=== PATIENT | female | born 1985 | race Caucasian/White ===

== ENCOUNTER 2017-02-01 10:50 | Inpatient (IN) | payer MEDICAID ==
[~2017-02-01] VITALS: Ht 167.6 cm; Wt 72.2 kg
[~2017-02-01 10:50] MED LIST: INSULIN R; LANTUS
--- NOTE | 2017-02-01 11:05 | ERD ---
ER Documentation Chief Complaint Date/Time DATE: 02/01/17 TIME: 11:01 Chief Complaint Abdominal pain nausea vomiting diarrhea and high blood sugar. HPI This 31-year-old female comes emergency room from her primary care office by ambulance for hyperglycemia with sugar of 432. States that she has a cyst on her hip currently. She also complains of a generalized crampy abdominal pain and nausea. She has been urinating more frequently than usual as well. At home she is on 2 types of insulin for her diabetes diagnosed 13 years ago. She states that her doctor gave her 2 shots. 1 of them was for diabetes and she is not sure what the other one was for. She has no fevers. ROS All systems reviewed and are negative except as per history of present illness. Medications Home Meds Reported Medications Sertraline Hcl* (Zoloft*) 100 Mg Tablet, 100 MG PO DAILY, #30 TAB 02/01/17 Insulin Glargine* (Lantus*) 100 Unit/Ml Soln, 30 UNIT SC QHS, #1 VIAL 02/01/17 Insulin Regular, Human (Humulin R) 100 Unit/1 Ml Vial, 15 UNIT IJ AC MEALS, VIAL 02/01/17 Discontinued Reported Medications [Lantus] No Conflict Check 09/06/10 [Insulin R] No Conflict Check 09/06/10 Allergies Allergies: Coded Allergies: No Known Allergy (Verified , 09/07/10) PMhx/Soc History of Surgery: Yes (BREAST IMPLANT) Anesthesia Reaction: No Hx Neurological Disorder: No Hx Respiratory Disorders: No Hx Cardiac Disorders: No Hx Psychiatric Problems: No Hx Miscellaneous Medical Probl: No Hx Alcohol Use: No Hx Substance Use: No Hx Tobacco Use: No Physical Exam Vitals Vital Signs Date Time Temp Pulse Resp B/P Pulse Ox O2 Delivery O2 Flow Rate FiO2 02/01/17 14:00 106 18 103/48 99 Room Air 02/01/17 13:40 110 18 100/41 99 Room Air 02/01/17 12:55 93 18 109/53 99 Room Air 02/01/17 11:42 98.6 89 18 134/66 98 Physical Exam Const: [] Mild distress, appears uncomfortable Head: Atraumatic Eyes: Normal Conjunctiva ENT: Normal External Ears, Nose and Mouth. Neck: Full range of motion..~ No meningismus. Resp: Clear to auscultation bilaterally Cardio: Regular rate and rhythm, no murmurs Abd: Soft, mild diffuse tenderness without guarding or rebound, non distended. Normal bowel sounds Skin: No petechiae or rashes Back: No midline or flank tenderness Ext: No cyanosis, or edema, right hip with very small area of erythema approximately 2 x 2 centimeters it is not raised or fluctuant. Neur: Awake and alert and oriented 3, no focal deficits Psych: Normal Mood and Affect Result Diagram: 02/01/17 1131 02/01/17 1131 Results 24 hrs Laboratory Tests Test 02/01/17 11:31 02/01/17 13:13 02/01/17 13:15 02/01/17 14:40 White Blood Count 17.410^3/ul Red Blood Count 4.6210^6/ul Hemoglobin 13.9g/dl Hematocrit 42.2% Mean Corpuscular Volume 91.3fl Mean Corpuscular Hemoglobin 30.1pg Mean Corpuscular Hemoglobin Concent 32.9g/dl Red Cell Distribution Width 13.2% Platelet Count 17971^3/UL Mean Platelet Volume 10.5fl Neutrophils % 83.9% Lymphocytes % 11.6% Monocytes % 3.5% Eosinophils % 0.3% Basophils % 0.3% Nucleated Red Blood Cells % 0.0/100WBC Neutrophils # 14.610^3/ul Lymphocytes # 2.010^3/ul Monocytes # 0.610^3/ul Eosinophils # 0.110^3/ul Basophils # 0.110^3/ul Nucleated Red Blood Cells # 0.010^3/ul Urine Color LT. YELLOW Urine Clarity CLEAR Urine pH 5.5 Urine Specific [place] 1.020 Urine Ketones 3+ Urine Nitrite NEGATIVE Urine Bilirubin NEGATIVE Urine Urobilinogen 0.2 E.U./dL Urine Leukocyte Esterase NEGATIVE Urine Microscopic RBC 2-5/HPF Urine Microscopic WBC 2-5/HPF Urine Epithelial Cells FEW Urine Hemoglobin TRACE Urine Glucose 0.5%% Urine Total Protein NEGATIVE Sodium Level 138mmol/L Potassium Level 5.1mmol/L Chloride Level 99mmol/L Carbon Dioxide Level 12mmol/L Anion Gap 32 Blood Urea Nitrogen 14mg/dl Creatinine 0.71mg/dl Glucose Level 583mg/dl Calcium Level 9.4mg/dl Total Bilirubin 1.7mg/dl Direct Bilirubin 0.00mg/dl Indirect Bilirubin 1.7mg/dl Aspartate Amino Transf (AST/SGOT) 16IU/L Alanine Aminotransferase (ALT/SGPT) 24IU/L Alkaline Phosphatase 117IU/L Total Protein 8.0g/dl Albumin 4.4g/dl Globulin 3.60g/dl Albumin/Globulin Ratio 1.22 Lipase 49U/L Bedside Glucose 447mg/dL 308mg/dL Lactic Acid Level 1.7mmol/L Current Medications Medications (Trade) Dose Ordered Sig/Keila Route PRN Reason Start Time Stop Time Status Last Admin Dose Admin Sodium Chloride (NS) 1,000 ml @ 1,000 mls/hr Q1H STAT IV 02/01/17 11:07 02/01/17 12:06 DC 02/01/17 11:28 Morphine Sulfate (morphine) 2 mg ONCE STAT IV 02/01/17 11:07 02/01/17 11:09 DC 02/01/17 11:29 Ondansetron HCl 4 mg 4 mg ONCE STAT IV 02/01/17 11:07 02/01/17 11:09 DC 02/01/17 11:28 Sodium Chloride 1,000 ml @ 1,000 mls/hr Q1H ONCE IV 02/01/17 13:00 02/01/17 14:04 DC 02/01/17 12:47 Sodium Chloride 1,000 ml @ 1,000 mls/hr Q1H ONCE IV 02/01/17 13:00 02/01/17 14:04 DC 02/01/17 12:56 Insulin Human Regular/Sodium Chloride (Novolin-R/NS) 100 ml @ 0 mls/hr TITRATE STAT IV 02/01/17 12:34 02/01/17 12:36 DC 02/01/17 13:19 Morphine Sulfate (morphine) 4 mg ONCE STAT IV 02/01/17 13:16 02/01/17 13:17 DC 02/01/17 13:27 Procedures/MDM Diabetic ketoacidosis. Patient also has leukocytosis which may be reactive as there is currently no obvious source of infection. Will not be administering antibiotics at this time. She has no vital signs suspicious for sepsis. Patient's nausea was resolved with Zofran and her pain was controlled with 2 mg of morphine and then 4 mg of morphine. She was given 3 L of IV fluid in the emergency room. Insulin drip was started. Currently patient's vital signs have stabilized and she is going to be admitted to the ICU. I spoke with Dr. Samayoa who will be admitting the patient. Chest x-ray interpretation: I see no acute process. There is no pulmonary edema , no infiltrate, no widened mediastinum, no pneumothorax, no fractures secured entrance monitor interpretation: Normal sinus rhythm without arrhythmia. Ultrasound interpretation of the right upper quadrant: Hepatomegaly, see no gallstones or dilated common bile duct. No persists colic fluid Critical care time 33 minutes: This includes treatment of diabetic ketoacidosis , very careful fluid administration, multiple visits patient bedside to reassess status, use of an insulin drip and multiple checks of electrolytes to monitor gap and sugar, chart reviewed, discussion with patient and the doctor is admitting to the intensive care unit. This does not include any billable procedures Departure Diagnosis: Primary Impression: DKA (diabetic ketoacidoses) Additional Impressions: Abdominal pain Vomiting Leukocytosis Hepatomegaly CHESTER GONZALEZ DO February 01, 2017 11:05
[2017-02-01] MEDS ORDERED: SOD CHLORIDE 0.9% 1,000 ML IV STA (11:07)
[2017-02-01] MEDS ORDERED: morphine 2 MG INJ IV STA (11:07)
[2017-02-01] MEDS ORDERED: ONDANSETRON 4 MG INJ IV STA (11:07)
[2017-02-01 11:42] VITALS: Ht 167.6 cm; Wt 72.2 kg
[2017-02-01 11:56] LABS: ADD SCAN DIFF NO
[2017-02-01 11:59] LABS: BASOPHIL # 0.1 10^3/ul (0.0-0.1); BASOPHILS % 0.3 % (0.0-2.0); EOSINOPHILS # 0.1 10^3/ul (0.0-0.5); EOSINOPHILS % 0.3 % (0.0-7.0); HEMATOCRIT 42.2 % (37.0-47.0); HEMOGLOBIN 13.9 g/dl (12.0-16.0); LYMPHOCYTES % 11.6 % (15.0-51.0); MEAN CORPUSCULAR HEMOGLOBIN 30.1 pg (29.0-33.0); MEAN CORPUSCULAR HGB CONC 32.9 g/dl (32.0-37.0); MEAN CORPUSCULAR VOLUME 91.3 fl (82.0-101.0); MEAN PLATELET VOLUME 10.5 fl (7.4-10.4); MONOCYTE # 0.6 10^3/ul (0.3-0.9); MONOCYTES % 3.5 % (0.0-11.0); NEUTROPHIL # 14.6 10^3/ul (1.6-7.5); NEUTROPHILS % 83.9 % (39.0-77.0); PLATELET COUNT 342 10^3/UL (140-415); RED BLOOD COUNT 4.62 10^6/ul (4.20-5.40); RED CELL DISTRIBUTION WIDTH 13.2 % (11.5-14.5); WHITE BLOOD COUNT 17.4 10^3/ul (4.8-10.8)
[2017-02-01 12:05] LABS: ADD UMIC YES; URINE BILIRUBIN (Dip) NEGATIVE (NEGATIVE); URINE BLOOD (Dip) TRACE (NEGATIVE); URINE COLOR LT. YELLOW (YELLOW); URINE KETONES (Dip) 3+ (NEGATIVE); URINE LEUKOCYTE ESTERASE (Dip) NEGATIVE (NEGATIVE); URINE NITRITE (Dip) NEGATIVE (NEGATIVE); URINE TOTAL PROTEIN (Dip) NEGATIVE (NEGATIVE); URINE UROBILINOGEN (Dip) 0.2 E.U./dL (0.1-1.0)
[2017-02-01 12:27] LABS: ALBUMIN 4.4 g/dl (3.3-4.9); ALBUMIN/GLOBULIN RATIO 1.22; BILIRUBIN,INDIRECT 1.7 mg/dl (0-1.1); BILIRUBIN,TOTAL 1.7 mg/dl (0.2-1.3); CALCIUM 9.4 mg/dl (8.4-10.2); CREATININE 0.71 mg/dl (0.44-1.00); POTASSIUM 5.1 mmol/L (3.5-5.1)
[2017-02-01] MEDS ORDERED: INSULIN HUMAN REGULAR 100 UNIT in SOD CHLORIDE 0.9% 99 ML IV STA (12:34)
[2017-02-01] MEDS ORDERED: SOD CHLORIDE 0.9% 1,000 ML IV ONE ×2 (13:00)
[2017-02-01] MEDS ORDERED: morphine 4 MG/ML VIAL IV STA (13:16)
--- NOTE | 2017-02-01 13:33 | RADRPT ---
PROCEDURE: XR Chest. CLINICAL INDICATION: Hyperglycemia TECHNIQUE: Chest AP portable. COMPARISON: No comparison available. FINDINGS: The mediastinal structures are unremarkable. The heart is normal in size and configuration. The pu lmonary vascularity is normal. The lung figueroa are unremarkable. No consolidation is identified. The pleural spaces are unremarkable. The axial skeleton is unremarkable. IMPRESSION: No active intrathoracic disease. RPTAT: HGDB .Jaya Camejo MD, MD Date Time Electronically viewed and signed by .Jaya Camejo MD, on 02/01/2017 13:33 .B/
[2017-02-01] MEDS ORDERED: LANT3I SC (14:00)
[2017-02-01] MEDS ORDERED: INSU100V3 IJ (14:00)
[2017-02-01] MEDS ORDERED: SERT100T PO (14:01)
--- NOTE | 2017-02-01 14:39 | RADRPT ---
PROCEDURE: US Abdomen. CLINICAL INDICATION: Elevated bilirubin with nausea and vomiting. TECHNIQUE: Multiple real-time images were acquired of the patient's abdomen and retroperitoneum ut ilizing a high resolution transducer. COMPARISON: None FINDINGS: The pancreas is normal as visualized. Portions of the tail of the pancreas are not visualized. The liver is identified in the right upper quadrant. There is a scarring stripe pattern in the liver . The liver is enlarged measuring 16.9 cm in sagittal AP dimension. The hepatic and portal veins ar e patent. The gallbladder wall measures 2.4 mm which is normal. There is no evidence of cholelithi asis. The common bile duct measures 5.6 mm. The right kidney measures 11.3 cm in length and is unremarkable. IMPRESSION: 1. Hepatomegaly. 2. This is a nonspecific finding that can be seen acute hepatitis , hepatitis, right heart failure or in the fasting liver. Burkittt's lymphoma, and leukemic infiltration of the liver occasionally r esult in this finding. Further workup would depend upon clinical suspicion. RPTAT:AAJJ Physician Laila Date Time Electronically viewed and signed by Physician Laila on 02/01/2017 14:38 JOSE/
[2017-02-01 16:05] LABS: POTASSIUM 5.5 mmol/L (3.5-5.1)
[2017-02-01 16:06] LABS: CALCIUM 8.5 mg/dl (8.4-10.2); CREATININE 0.65 mg/dl (0.44-1.00)
[2017-02-01 16:22] LABS: POTASSIUM 4.6 mmol/L (3.5-5.1)
[2017-02-01 16:24] LABS: CREATININE 0.61 mg/dl (0.44-1.00)
[2017-02-01 16:25] LABS: CALCIUM 8.1 mg/dl (8.4-10.2)
[2017-02-01] MEDS ORDERED: ACETAMINOPHEN 325 MG TAB PO PRN (16:30)
[2017-02-01] MEDS ORDERED: DOCUSATE SODIUM 100 MG CAP PO PRN (16:30)
[2017-02-01] MEDS ORDERED: NA PHOSPHATE/BIPHOS 133 ML ENEMA PR PRN (16:30)
[2017-02-01] MEDS ORDERED: NACL 0.9% 3 ML SYG IV SCH (16:30)
[2017-02-01] MEDS ORDERED: morphine 2 MG INJ IV PRN (16:30)
[2017-02-01] MEDS ORDERED: LORAZEPAM 2 MG INJ IV PRN (16:30)
[2017-02-01] MEDS ORDERED: ONDANSETRON 4 MG INJ IV PRN (16:30)
[2017-02-01] MEDS ORDERED: ALBUTEROL/IPRATROPIUM (NEB) 3 ML AMP HHN PRN (16:30)
[2017-02-01] MEDS ORDERED: hydrALAzine 20 MG INJ IV PRN (16:30)
[2017-02-01] MEDS ORDERED: MAGNESIUM HYDROXIDE 30ML CUP PO PRN (16:30)
[2017-02-01] MEDS ORDERED: HYDROCODONE/APAP (5/325) TAB PO PRN (16:30)
[2017-02-01] MEDS ORDERED: NITROGLYCERIN (SL) 0.4 MG TAB SL PRN (16:30)
[2017-02-01] MEDS ORDERED: GLUCAGON 1 MG INJ IM PRN (17:00)
[2017-02-01] MEDS ORDERED: GLUCOSE GEL 15 GRAM TUBE PO PRN ×2 (17:00)
[2017-02-01] MEDS ORDERED: DEXTROSE 50% 50 ML SYRINGE IV PRN ×2 (17:00)
[2017-02-01] MEDS ORDERED: GLUCOSE GEL 15 GRAM TUBE BUCCAL PRN (17:00)
[2017-02-01] MEDS: INSULIN ASPART [NOVOLOG] 3 ML PEN SC SCH ×2 (17:30→21:55)
[2017-02-01] MEDS: SOD CHLORIDE 0.9% 1,000 ML IV SCH (17:49)
[2017-02-01 18:00] VITALS: TEMP 98.2
[2017-02-01 18:46] LABS: POTASSIUM 4.9 mmol/L (3.5-5.1)
[2017-02-01 18:49] LABS: CREATININE 0.58 mg/dl (0.44-1.00)
[2017-02-01 18:50] LABS: CALCIUM 8.2 mg/dl (8.4-10.2)
--- NOTE | 2017-02-01 20:03 | HP ---
DATE OF ADMISSION: 02/01/2017 CHIEF COMPLAINT: Abdominal pain, nausea, vomiting. HISTORY OF PRESENT ILLNESS: A 31-year-old female with past medical history of diabetes, unclear typ e, who was sent in from the emergency room from her primary care office because of elevated blood molina gar. Apparently her sugar was taken, it was around 432. She has been having abdominal pain, nausea , vomiting symptoms for the last couple of days as well. She also had increased urinary frequency, but denies dysuria, hematuria. Apparently at home she takes insulin for her diabetes, which was lisandro gnosed about 13 years ago. She has 2 different kinds of insulin she says she takes at home. When s he came into the ER today, however, she was found with blood sugar elevated of 583, and her anion ga p was elevated as well. Her CO2 was low. Signs of diabetic ketoacidosis. The patient was given IV fluids and IV insulin in the ER. PAST MEDICAL HISTORY: As stated above. ALLERGIES: NO KNOWN DRUG ALLERGIES. HOME MEDICATIONS: 1. Zoloft 100 mg daily. 2. Lantus 30 units at bedtime. 3. Humulin R 15 units with meals. PAST SURGICAL HISTORY: She had breast implants in the past. SOCIAL HISTORY: Negative for smoking, drinking, or IV drug abuse. FAMILY HISTORY: Noncontributory. PHYSICAL EXAMINATION: VITAL SIGNS: T-max 98.6, pulse 89 to 110, respirations 18, blood pressure 100/41, saturating at 99% on room air. GENERAL: The patient is lying in bed, slightly lethargic but in mild distress. HEENT: Pupils equal, round, react to light. Extraocular muscles intact. NECK: Supple, no thyromegaly. LUNGS: Clear to auscultation bilaterally. CARDIOVASCULAR: S1, S2 heard. No rubs or gallops. ABDOMEN: Mild tenderness to palpation in epigastric area. No rebound or guarding. MUSCULOSKELETAL: No lower extremity edema bilaterally. NEUROLOGIC: No focal deficits. LABORATORIES: WBC 17.4, hemoglobin 13.9, hematocrit 42.2, platelets 342. Sodium 138, potassium 5.1 , chloride 99, CO2 of 12, BUN 14, creatinine 0.71, glucose 583. Her UA shows 3+ ketones, negative n itrites, negative leukocyte esterase. There was a gallbladder ultrasound performed today that shows hepatomegaly, nonspecific finding that can be seen in acute hepatitis, hepatitis, right heart failu re or fasting liver. The chest x-ray showed no active intrathoracic disease. ASSESSMENT AND PLAN: A 31-year-old female coming in with abdominal pain, nausea, vomiting, increase d urinary frequency for the last 2 days with signs of diabetic ketoacidosis. 1. Abdominal pain, nausea, vomiting, most likely all secondary to patient's diabetic ketoacidosis. She also had increased urinary frequency. The patient has been in the ER for a few hours. Her gap is actually closed now. Sugars are down into the high 100 range, so because she has gotten IV insu daniel in the ER, will go ahead and admit the patient to either telemetry or Med/Surg floor. We will c ontinue aggressive IV fluid hydration. Check TSH, A1c, lipid panel. Consider starting her on carbo hydrate controlled diet now and switching her to SubQ insulin at this point, as she appears to be co jsei out of diabetic ketoacidosis. Replete electrolytes aggressively including any low potassium, ph osphorus or magnesium as well. 2. Possible history of anxiety, Ativan p.r.n. 3. Gastrointestinal prophylaxis. Proton pump inhibitor. 4. Deep venous thrombosis prophylaxis, heparin subQ. Dictated By: GEORGE BATES Conf#: [id number] DID#: [id number]
[2017-02-01 20:05] VITALS: PULSE 72
[2017-02-01 20:10] LABS: HAAIG REFLEX REFLEX FILED
[2017-02-01 20:41] LABS: ETHANOL < 10.0 mg/dl
[2017-02-01 20:44] LABS: ALBUMIN 3.5 g/dl (3.3-4.9)
[2017-02-01 20:47] LABS: TOTAL PROTEIN 6.7 g/dl (6.1-8.1)
[2017-02-01] MEDS ORDERED: INSULIN GLARGINE [LANtus] 3 ML PEN SC SCH (21:00)
[2017-02-01 21:02] LABS: CALCIUM 8.3 mg/dl (8.4-10.2); CREATININE 0.57 mg/dl (0.44-1.00)
[2017-02-01 21:53] LABS: HEPATITIS B CORE ANTIBODY NEGATIVE (NEGATIVE)
[2017-02-01] MEDS: HEPARIN 5,000 UNIT/0.5 ML VIAL SC SCH (21:54)
[2017-02-01 21:56] VITALS: BP 108/54; RESP 20
[2017-02-01 22:36] LABS: CALCIUM 8.6 mg/dl (8.4-10.2); CREATININE 0.6 mg/dl (0.44-1.00); POTASSIUM 5.2 mmol/L (3.5-5.1)
[2017-02-02 01:27] LABS: CALCIUM 8.5 mg/dl (8.4-10.2); CREATININE 0.58 mg/dl (0.44-1.00); POTASSIUM 4.4 mmol/L (3.5-5.1)
[2017-02-02] MEDS: SOD CHLORIDE 0.9% 1,000 ML IV SCH ×2 (02:30→04:52)
[2017-02-02] MEDS ORDERED: PANTOPRAZOLE (EC) 40 MG TAB PO SCH (06:00)
[2017-02-02 06:56] LABS: CHOL/HDL RATIO 1.8 RATIO
[2017-02-02 06:58] LABS: CALCIUM 8.6 mg/dl (8.4-10.2); CREATININE 0.6 mg/dl (0.44-1.00); POTASSIUM 4.5 mmol/L (3.5-5.1)
[2017-02-02 07:38] LABS: THYROID STIMULATING HORMONE 1.16 MIU/L (0.465-4.680)
[2017-02-02 08:10] VITALS: BP 125/60; RESP 17
[2017-02-02] MEDS: INSULIN ASPART [NOVOLOG] 3 ML PEN SC SCH ×4 (08:18→12:27)
[2017-02-02] MEDS: HEPARIN 5,000 UNIT/0.5 ML VIAL SC SCH (08:19)
[2017-02-02 08:34] LABS: ADD SCAN DIFF NO
[2017-02-02 08:37] LABS: BASOPHILS % 0.2 % (0.0-2.0); EOSINOPHILS # 0.2 10^3/ul (0.0-0.5); EOSINOPHILS % 1.1 % (0.0-7.0); HEMOGLOBIN 11.9 g/dl (12.0-16.0); LYMPHOCYTES # 2.4 10^3/ul (0.8-2.9); LYMPHOCYTES % 18.3 % (15.0-51.0); MEAN CORPUSCULAR HEMOGLOBIN 30.1 pg (29.0-33.0); MEAN CORPUSCULAR HGB CONC 33.1 g/dl (32.0-37.0); MEAN CORPUSCULAR VOLUME 91.1 fl (82.0-101.0); MEAN PLATELET VOLUME 10.4 fl (7.4-10.4); MONOCYTE # 0.6 10^3/ul (0.3-0.9); MONOCYTES % 4.7 % (0.0-11.0); NEUTROPHILS % 75.3 % (39.0-77.0); PLATELET COUNT 274 10^3/UL (140-415); RED BLOOD COUNT 3.95 10^6/ul (4.20-5.40); RED CELL DISTRIBUTION WIDTH 13.3 % (11.5-14.5); WHITE BLOOD COUNT 13.3 10^3/ul (4.8-10.8)
[2017-02-02] MEDS ORDERED: SERTRALINE 100 MG TAB PO SCH (09:00)
[2017-02-02 09:14] LABS: POTASSIUM 4.4 mmol/L (3.5-5.1)
[2017-02-02 09:17] LABS: CREATININE 0.62 mg/dl (0.44-1.00)
[2017-02-02 09:18] LABS: CALCIUM 8.6 mg/dl (8.4-10.2); MAGNESIUM 1.6 mg/dl (1.7-2.5); PHOSPHORUS 3.7 mg/dl (2.5-4.9)
--- NOTE | 2017-02-02 12:16 | PDOCDIS ---
Discharge Instructions CONDITION Patient Condition: Stable HOME CARE INSTRUCTIONS: Special Diet: carb controlled ACTIVITY: Activity Restrictions: Slowly Increase Activity FOLLOW UP/APPOINTMENTS Appointments Take your medications. See your doctor in 1 week. GEORGE FREDERICK February 02, 2017 12:16
[2017-02-02] MEDS ORDERED: MAGNESIUM SULFATE 1 GM/D5W 100 ML IVPB ONE (12:30)
--- NOTE | 2017-02-02 12:40 | DS ---
DATE OF ADMISSION: 02/01/2017 DATE OF DISCHARGE: 02/02/2017 This is a 31-year-old female originally admitted on 02/01/2017 and being discharged home on 02/03/20 17. HOSPITAL COURSE: The patient came in with elevated blood sugars after experiencing abdominal pain, nausea, vomiting. She was admitted, she had early signs of DKA. She did get IV insulin in the ER a s well as IV fluids, and by the time she was admitted to the regular inpatient unit, she was technic ally out of DKA, but in any event, she was admitted, given aggressive IV fluid hydration, switched o minerva to subcutaneous insulin. She was able to tolerate a diet and ambulate, and her vital signs are stable as well. She was found with hemoglobin A1c of 8.6. She claims she is compliant with her med ications at home, but she has had DKA episodes in the past, so some mild education was done at the [facility]. The patient says that 3 days before admission she had some kind of steroid shot she believe s in her hip for a cyst, and this may have exacerbated her sugars. In any event, by the time of dis charge, her sugars are stable. Her anion gap had closed. She was able to ambulate and tolerate a p .o. diet. She had some low magnesium levels. We are going to replete that, and afterwards, if her sugars continue to stay low, she will be discharged home today in improved condition. She will be s ent with Lantus 30 units subcutaneous at bedtime and then this Humulin R 15 units subQ with meals an d Zoloft 100 mg daily. She will need to follow up with primary care doctor in the clinic in the nex t 1 to 2 weeks. FINAL DIAGNOSES: 1. Elevated blood sugars secondary to diabetic ketoacidosis. 2. Type 1 diabetes, A1c of 8.6, on insulin at home. 3. History of anxiety. Time spent discharging this patient, 35 minutes. Dictated By: GEORGE BATES Conf#: [id number] DID#: [id number]
== END 2017-02-02 15:16 | disposition home or self-care (01) | DRG 639 ==
LOC: E/R 10:50 → PP2 13:24
PROVIDERS: ADMIT Hospitalist; ATTEND Hospitalist
DX: E10.10 Type 1 diabetes mellitus with ketoacidosis without coma (principal); F41.9 Anxiety disorder, unspecified
CPT/HCPCS: 36415; 71010; 76705; 80048; 80053; 80061; 80076; 80306; 81001; 82962; 83036; 83605; 83690; 83735; 84100; 84439; 84443; 85025; 86704; 86709; 86803; 87040; 87086; 87340; 96361; 96365; 96366; 96375; 96376; J1644; J1815; J2270; J2405; J3475; J7030